=== PATIENT | male | born 1970 | race Caucasian/White ===

== ENCOUNTER 2020-10-21 12:31 | Outpatient (CLI) | payer BC, SELFPAY ==
--- NOTE | ~2020-10-21 | XR_ITS ---
EXAMINATION: XR chest 2V DATE: 10/21/2020 08:51 INDICATION: Cough TECHNIQUE: PA and lateral views of the chest are obtained. COMPARISON: 08/19/2015 FINDINGS: The lungs are free of acute opacities. Scattered calcified pulmonary nodules are consistent with old granulomatous disease. There is no pleural effusion or pneumothorax. The cardiomediastinal silhouette is normal. There is moderate thoracic spondylosis. IMPRESSION: 1. No acute cardiopulmonary abnormality. Reviewed, dictated and finalized at location A. 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
[2020-10-21 09:59] LABS: Alanine Aminotransferase 24 U/L (4-50); Albumin Level 4.1 g/dL (3.5-5.1); Alkaline Phosphatase 71 U/L (38-126); Anion Gap 4 mmol/L (8-16); Aspartate Amino Transferase 23 U/L (17-59); Blood Urea Nitrogen 14 mg/dL (9-20); Calcium 8.7 mg/dL (8.4-10.2); Carbon Dioxide 26 mmol/L (22-30); Chloride 109 mmol/L (98-107); Cholesterol 201 mg/dL (0-200); Estimated Glomerular Filt Rate > 60; Glucose 105 mg/dL (75-110); HDL Direct 40 mg/dL; Potassium 4.4 mmol/L (3.4-5.0); Sodium 139 mmol/L (137-145); Triglycerides 136 mg/dL (<150)
[2020-10-21 10:10] LABS: LDL Cholesterol Direct 128 mg/dL
[2020-10-21 17:20] LABS: SARS-CoV-2 RNA PCR Negative
== END 2020-10-21 12:32 | disposition home or self-care (01) ==
LOC: ANHLAB 10-27 12:31
PROVIDERS: PCP Internal Medicine; Visit Provider Nurse Practitioner
DX: Z13.6 Encounter for screening for cardiovascular disorders (principal); R05 Cough; Z13.220 Encounter for screening for lipoid disorders; Z20.822 Contact with and (suspected) exposure to COVID-19
CPT/HCPCS: 36415; 71046; 80053; 80061; C9803; U0003; U0005

== ENCOUNTER → 2020-11-04 08:13 | Outpatient (CLI) | payer BC, SELFPAY ==
--- NOTE | ~2020-11-04 | CT_ITS ---
EXAMINATION: CT diagnostic chest wo con EXAM DATE: 11/04/2020 08:34 INDICATION: R04.2 - Hemoptysis. Cough. TECHNIQUE: Spiral CT of the chest without contrast. Axial, coronal and sagittal images were reviewe d. Coronal maximum intensity pixel images of chest reviewed. The dose-length product (DLP) for this examination was 793.59 mGy-cm. The exposure was tailored according to patient size (auto mA exposur e control), and iterative reconstruction (ASIR) was used as additional dose reduction technique. The re is no prior study for comparison. Correlation was made with chest x-ray 10/21/2020. FINDINGS: Numerous punctate calcifications from prior granulomatous process. There is apical parasep derrick emphysema. There are no pleural or pericardial effusions. Tracheobronchial tree is patent. T here is no mediastinal, hilar or axillary lymphadenopathy. There is no pneumothorax. Heart normal in size. No evidence of coronary arterial calcification. Upper abdomen is unremarkable. There i s thoracic spondylosis without osteoblastic or osteolytic lesions identified. Left-sided thyromegal y, could be from focal nodule; consider ultrasound for risk stratification. IMPRESSION: 1. Upper lobe predominant paraseptal emphysema. 2. Scattered lung parenchymal granulomata. 3. Left thyromegaly; consider ultrasound. Reviewed, dictated and finalized at location A.
== END ==
PROVIDERS: PCP Internal Medicine; Visit Provider Nurse Practitioner
DX: R04.2 Hemoptysis (principal)
CPT/HCPCS: 71250

== ENCOUNTER 2020-11-11 14:31 | Outpatient (CLI) | payer BC, SELFPAY ==
--- NOTE | ~2020-11-11 | US_ITS ---
EXAMINATION: US thyroid EXAM DATE: 11/11/2020 15:07 INDICATION: Nontoxic goiter. TECHNIQUE: Multiple grayscale and Doppler images of the thyroid were obtained (by a technologist who performed the scan) and subsequently reviewed. Individual nodules and recommendations may be reporte d in accordance with TI-RADS system as designated by the 2017 ACR White Paper TI-RADS committee. Selena elation is made to CT chest 11/04/2020. FINDINGS: The right thyroid lobe measures 4.5 x 1.9 x 2.0 cm, the left measuring 6.7 x 3.5 x 2.7 cm. Mildly dif fusely heterogeneous thyroid echogenicity. In the left thyroid lobe there is a nodule measuring 4.3 x 3.1 x 1.6 cm, solid (2 points), isoechoic (1 point), wider than tall, smooth well defined margin, without echogenic foci, category TR3 for this nodule. Size warrants considering ultrasound-guided FNA. There are several other small bilateral th yroid nodules 5 mm or less not likely clinically significant. IMPRESSION: Left thyroid nodule large enough to recommend ultrasound-guided biopsy. Reviewed, dictated and finalized at location A. IMPRESSION: Left thyroid nodule large enough to recommend ultrasound-guided bio psy.
== END 2020-11-11 14:32 | disposition home or self-care (01) ==
PROVIDERS: PCP Internal Medicine; Visit Provider Nurse Practitioner
DX: E04.1 Nontoxic single thyroid nodule (principal)
CPT/HCPCS: 76536

== ENCOUNTER 2020-11-12 08:38 | Outpatient (CLI) | payer BC, SELFPAY ==
--- NOTE | 2020-11-12 08:44 | EST_ITS ---
Patient Info Name: Manish Esquivel Age: 50 years : 1970 Gender: Male Ht: 76 in Wt: 370 lbs BSA: 3.07 m2 HR: 62 bpm BP: 128 / 75 mmHg Exam Date: 11/12/2020 9:05 AM Exam Location: [facility] Patient Status: Outpatient Admit Date: 11/12/2020 Staff Ordering Physician: Marta Malloy [employer] Field Supervisor: Morelia Márquez RDCS Attending Provider: CLIFFORD GALAN DO Exercise Technologist: Jennifer De La Garza RDCS Exercise Physician: Clifford Galan DO Exam Type: CA stress echo Study Info Indications R06.01 - Orthopnea Treadmill exercise stress echocardiogram is performed. Summary 1. 1. Negative Jimbo exercise stress test for ischemic ST changes by ECG criteria. 2. 2. Reduced functional capacity, achieving 8 METs of workload. 3. 3. Appropriate HR response to exercise. 4. 4. Appropriate HR recovery at 1 minute post exercise. 5. 5. Negative stress echocardiogram for ischemia by wall motion analysis. 6. 6. Patient informed of the above results. Stress Echo Findings Left Ventricle Appropriate increase in LV endocardial thickening with systole. Appropriate augmentation of contractility with systole. No wall motion abnormality. Left Ventricle Normal LV systolic function, no wall motion abnormality. Protocol: Jimbo Stress ECG Details Stage: REST Duration (min): 0 min : 58 sec Speed (mph): 0.0 Grade (%): 0 HR (bpm): 65 SBP (mmHg): 128 DBP (mmHg): 75 METS: --- Stage: REST Duration (min): 8 min : 49 sec Speed (mph): 0.0 Grade (%): 0 HR (bpm): 67 SBP (mmHg): 128 DBP (mmHg): 75 METS: --- Stage: STAGE 1 Duration (min): 1 min : 0 sec Speed (mph): 1.7 Grade (%): 10 HR (bpm): 91 SBP (mmHg): 128 DBP (mmHg): 75 METS: --- Stage: STAGE 1 Duration (min): 2 min : 0 sec Speed (mph): 1.7 Grade (%): 10 HR (bpm): 97 SBP (mmHg): 128 DBP (mmHg): 75 METS: --- Stage: STAGE 1 Duration (min): 3 min : 0 sec Speed (mph): 1.7 Grade (%): 10 HR (bpm): 97 SBP (mmHg): 173 DBP (mmHg): 83 METS: --- Stage: STAGE 2 Duration (min): 1 min : 0 sec Speed (mph): 2.5 Grade (%): 12 HR (bpm): 110 SBP (mmHg): 173 DBP (mmHg): 83 METS: --- Stage: STAGE 2 Duration (min): 2 min : 0 sec Speed (mph): 2.5 Grade (%): 12 HR (bpm): 117 SBP (mmHg): 180 DBP (mmHg): 96 METS: --- Stage: STAGE 2 Duration (min): 3 min : 0 sec Speed (mph): 2.5 Grade (%): 12 HR (bpm): 128 SBP (mmHg): 180 DBP (mmHg): 96 METS: --- Stage: STAGE 3 Duration (min): 0 min : 44 sec Speed (mph): 0.0 Grade (%): 0 HR (bpm): 143 SBP (mmHg): 180 DBP (mmHg): 96 METS: --- Stage: RECOVERY Duration (min): 0 min : 15 sec Speed (mph): 0.0 Grade (%): 0 HR (bpm): 131 SBP (mmHg): 200 DBP (mmHg): 95 METS: --- Stage: RECOVERY Duration (min): 1 min : 15 sec Speed (mph): 0.0 Grade (%): 0 HR (bpm):
--- NOTE | 2020-11-12 15:12 | WPDPFTINT ---
PFT Interpretation This is a pulmonary function test with spirometry, plethysmography and diffusing capacity. The test was performed and results interpreted in accordance with the 2019 and 2005 ATS/ERS Task Force guidelines respectively using the Global Lung Function Initiative-2012 reference equations. Patient demonstrated good effort and cooperation. Reproducibility criteria were met. The quality of the pre bronchodilator spirometry maneuver was Grade A. Findings: Spirometry: The contour the inspiratory and expiratory flow tracing are normal. The FVC is 5.75 L, 93% predicted. The FEV1 is 4.25 L, 89% predicted. The FEV1: FVC ratio is 74%. Plethysmography: The total lung capacity is 8.37 L, 102% predicted. The functional residual capacity is 4.48 L, 105% predicted. The residual volume is 2.62 L, 113% predicted. Diffusing capacity: The absolute diffusion capacity is 25.1, 74% predicted. The diffusing capacity corrected for alveolar volume is 4.15, 97% predicted. Impression: The spirometry is normal without evidence of an obstructive abnormality. The lung volumes are normal. The absolute diffusing capacity is mildly decreased and normalizes when corrected for alveolar volume. There are no prior studies for comparison PFT Procedure Performed PFT Procedure Performed Plethysmography (Lung Vol) Diffusing Cap (DLCO) Spirometry w/o Bronchodil
== END 2020-11-12 08:39 | disposition home or self-care (01) ==
PROVIDERS: PCP Internal Medicine; Visit Provider Nurse Practitioner
DX: R06.01 Orthopnea (principal); R05 Cough
CPT/HCPCS: 93351; 94375; 94726; 94729

== ENCOUNTER 2020-11-25 09:43 | Outpatient (CLI) | payer BC, SELFPAY ==
--- NOTE | ~2020-11-25 | US_ITS ---
EXAMINATION: US FNA w image guidance DATE: 11/25/2020 10:38 INDICATION: Thyroid nodule. TECHNIQUE: The procedure and its benefits and risks were discussed with the patient. Risks specifically discusse d included bleeding. The patient verbalized understanding of the risks and agreed to proceed. The nec k was prepped and draped in the usual sterile manner. 1% lidocaine was used for local anesthesia. 5 passes were made with a 25G needle into the lesion under ultrasound guidance. There were no immedia te complications. The patient understood to call the ordering physician for results after a week and a half and verbalized that understanding. FINDINGS: Grayscale ultrasound images demonstrate needles advanced into a 4.3 cm nodule in left thyroid lobe fo r biopsy. IMPRESSION: 1. Ultrasound-guided fine needle aspiration of a left thyroid nodule. Reviewed, dictated and finalized at location A.
== END 2020-11-25 09:44 | disposition home or self-care (01) ==
PROVIDERS: PCP Internal Medicine; Visit Provider Nurse Practitioner
DX: E04.1 Nontoxic single thyroid nodule (principal)
CPT/HCPCS: 10005; 88173; 88305

== ENCOUNTER 2021-05-26 15:03 | Outpatient (CLI) | payer BC, SELFPAY ==
--- NOTE | ~2021-05-26 | US_ITS ---
EXAMINATION: US soft tissue lower back DATE: 05/26/2021 15:37 INDICATION: Right lower back soft tissue mass and pain. TECHNIQUE: Multiple grayscale and Doppler ultrasound images of the abdomen were obtained. COMPARISON: CT abdomen and pelvis 08/05/2017 FINDINGS: There is an 11 mm subcutaneous hyperechoic mass in the patient's area of concern in right l ower back. IMPRESSION: 1. 11 mm subcutaneous hyperechoic mass in the patient's area of concern in right lower back, likely mild inflammation. Reviewed, dictated and finalized at location A. IMPRESSION: 1. 11 mm subcutaneous hyperechoic mass in the patient's area of concern in rig ht lower back, likely mild inflammation.
== END 2021-05-26 15:04 | disposition home or self-care (01) ==
LOC: ANHIMG 15:05
PROVIDERS: PCP Internal Medicine; Visit Provider Internal Medicine
DX: M54.9 Dorsalgia, unspecified (principal); R22.2 Localized swelling, mass and lump, trunk
CPT/HCPCS: 76705

== ENCOUNTER 2021-06-01 12:41 | Outpatient (CLI) | payer BC, SELFPAY ==
--- NOTE | ~2021-06-01 | CT_ITS ---
EXAMINATION: CT abdomen pelvis wo con DATE: 06/01/2021 13:16 INDICATION: Unspecified abdominal pain TECHNIQUE: Computed tomography (CT) of the abdomen and pelvis was performed without intravenous contr ast. Automated exposure control and iterative reconstruction technique were employed. The dose-length product was 2044.49 mGy-cm. COMPARISON: CT abdomen and pelvis dated 08/05/2017 FINDINGS: There are few scattered small calcified pulmonary nodules at the bilateral lower lung zones consisten t with old granulomatous disease. Normal dependent atelectasis in the right lower lobe. Heart size is normal. No pericardial or pleural effusion. Liver, gallbladder, spleen, pancreas, left kidney and bi lateral adrenal glands are normal. 1.7 cm low-attenuation cyst at the upper pole of the right kidney. Bowels including the appendix are normal. Bladder is normal. No free intraperitoneal gas or fluid. N o pathologically enlarged abdominal or pelvic lymphadenopathy. Small fat-containing paraumbilical her florinda. Small fat-containing left inguinal hernia. Mild thoracic spondylosis. IMPRESSION: 1. No acute intra-abdominal/pelvic process. 2. Small fat-containing left inguinal and paraumbilical hernias. Reviewed, dictated and finalized at location A.
== END 2021-06-01 12:42 | disposition home or self-care (01) ==
PROVIDERS: PCP Internal Medicine; Visit Provider Internal Medicine
DX: R10.9 Unspecified abdominal pain (principal); K40.90 Unilateral inguinal hernia, without obstruction or gangrene, not specified as recurrent; K42.9 Umbilical hernia without obstruction or gangrene
CPT/HCPCS: 74176

== ENCOUNTER 2021-07-12 01:21 | Day surgery (SDC) | payer BC, SELFPAY ==
[2021-07-06 11:08] VITALS: BMI 46.3
--- NOTE | 2021-07-06 11:33 | PC.NURSE ---
Report to the Outpatient Waiting Room, entrance under the green pavilion located off [facility], at time 0600 on date 07/12/21. OR Time: 0730. - You and your visitor will be asked a series of questions to screen for COVID 19 for your protection. - A mask is required within the hospital. - Only one visitor is allowed at this time. Patient visitors will be guided where to wait when not with patient. Preoperative COVID Testing Requirements: No COVID Test needed if: (proof is required; if not received patient will have Rapid Test prior to entry) - Patient has received COVID Vaccine at least 14 days prior to procedure date or - Patient has positive COVID test result within last 90 days of surgery date. COVID Test needed if above criteria is not met If not COVID vaccinated a COVID test must be conducted within 72 hours of surgery and patient is asked to isolate self from time of testing until procedure. You will go to the [facility] for your COVID testing. The [facility] is located at the corner of [address] [facility]. You will only be called if COVID results are positive and your surgeon may reschedule your elective surgery date. Patients may have clear liquids (water, carbonated beverages, clear teas, apple juice) until 3 hours prior to surgery with a maximum of 20 ounces. - No food from midnight until time of surgery - Infants may have breast milk until 4 hours before surgery, infant formula 6 hours prior to surgery. - Children will be allowed to drink immediately following surgery. If applicable, please bring a bottle or sippy cup to assist with drinking. Juice, water, soda, and popsicles are readily available. For infants on formula, please bring formula the day of surgery. Pacifiers are allowed. Take the following medications with a SIP of water the morning of surgery: INHALERS (AND BRING ALBUTEROL) Medications to discontinue per physician: N/A Date to take last dose: N/A Please no make-up, nail persian, hairspray, perfume, deodorant, or body powder the day of surgery. No jewelry (including any body piercings) or valuables the day of surgery, leave them at home. Please take a shower or bath the night before, or the morning of, surgery with an antibacterial soap. Wear comfortable, loose fitting clothing. Children are encouraged to wear pajamas. HIBICLENS SHOWER - Jewelry must be removed prior to entering the operating room. Rings and piercings that are not removed may be cut off. - The hospital will not accept responsibility for valuables. - Please leave all valuables, including medications, at home the day of surgery. If you are going home after surgery, a licensed sprinkler truck driver must drive you home. - NO public transportation without another adult. - We recommend that an adult stay with you for 24 hours following discharge. - We also recommend that you do not drive, make important decision, drink alcoholic beverages, or take any drugs that were not prescribed by your health care provider for at least 24 hours after your discharge time. For Pediatric surgeries, we recommend two adults accompany the child home (only one inside the building at this time). Follow any additional instructions given to you from your surgeon. Telephone instructions given to LYLY DAY and asked if any additional questions and then verbalized understanding. Patient advised to call surgeon office or pre surgery nurse liaison [phone] if any additional questions.
[2021-07-12] VITALS (10 sets, daily range): BP systolic 113–147; BP diastolic 66–87; PULSE 60–75; RESP 12–18; TEMP 36.9–37.4; O2SAT 94–99
[2021-07-12] MEDS: ACETAMINOPHEN 500 MG TABLET 1000 MG PO (06:29)
--- NOTE | 2021-07-12 06:40 | WPDANESEPPF ---
Anes - Initial Pre Proc Eval Procedure: Operation Date: 07/12/21 07:30 Proposed Procedures p Robotic Assisted Left Inguinal Hernia Repair with Mesh - Jodie Patten MD Date/Time: 07/12/21 06:40 Surgeon: Jodie Patten MD Pre Op Diagnosis: left inguinal hernia Patient Data Age: 51 Gender: M Height: 1.93 m Weight: 170.5 kg Allergies Allergy/AdvReac Type Severity Reaction Status Date / Time No Known Allergies Allergy Verified 07/12/21 06:26 Home Medications Medication Instructions Recorded Confirmed Type albuterol sulfate 90 mcg/actuation 2 puff INHALATION Q4H PRN #8.5 g 02/25/21 07/12/21 Rx aerosol inhaler fluticasone propionate 50 2 spray INTRANASAL BID #16 ml 03/16/21 07/06/21 Rx mcg/actuation nasal spray,suspension budesonide-formoterol HFA 160 1 puff INHALATION DAILY #10.2 g 05/31/21 07/06/21 Rx mcg-4.5 mcg/actuation aerosol inhaler Patient hx anesthesia problems: other (wakes up violent) Family hx anesthesia problems: none Results Review: All pre-operative results and documents have been reviewed as part of the pre-operative evaluation. [facility] Past Medical History Medical History (Updated 07/12/21 @ 06:41 by Chin Pena DO) Asthma Emphysema/COPD Lateral epicondylitis of both elbows JACOB (obstructive sleep apnea) does not use CPAP Surgical History Surgical History H/O hernia repair left inguinal repair as a child. 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 Informed Consent: The patient's anesthetic plan and its attendant risks and benefits were discussed with the patient/family/POA. Questions were solicited and answers provided to the satisfaction of the patient/family/POA.
[2021-07-12] MEDS: LACTATED RINGERS 1,000 ML 30 ML IV CONT ×3 (06:47→10:33)
[2021-07-12] MEDS: KETOROLAC 15 MG/ML VIAL (*BKC) IV PUSH (06:49)
--- NOTE | 2021-07-12 07:27 | WPDHPUPDATE1 ---
History and Physical Update Update Date/Time: 07/12/21 07:27 History and Physical has been reviewed, including an updated exam of the patient. There are NO changes in the patient's condition. Risks, benefits, and alternatives have been discussed and questions answered. Patient agrees to proceed with procedure.
[2021-07-12] MEDS: ceFAZolin 3 GM/D5W 100 ML 100 ML IVPB (07:32)
[2021-07-12] MEDS: BUPIVACAINE HCL 0.5% PF 30 ML VIAL INFILTRATE (07:51)
--- NOTE | 2021-07-12 09:25 | W.PM.PROC2 ---
Procedure Note - Detailed Date of Procedure 07/12/21 Pre-op Diagnosis left inguinal hernia Post-op Diagnosis same Procedure Performed robotic assisted left inguinal hernia repair with mesh Surgeon Jodie Patten MD Anesthesia general Indications 51 y/o M c LIH and worsening groin pain over last few months Findings indirect left inguinal hernia Description of Procedure Patient was brought into the operating room and placed in the supine position. After adequate induction of general anesthesia, the patient was prepped and draped in normal sterile fashion. A time-out was then done to verify the patient's identity, as well as the procedure being performed. I began by making a 8 mm incision in the supraumbilical region, a Veress needle was then placed into the peritoneal cavity. CO2 gas was then insufflated and after adequate pneumoperitoneum was achieved, the Veress needle was removed. I then placed an 8 mm trocar through this incision. I then placed the endoscope through this trocar site and under direct visualization placed 2 further 8 mm ports in the right and left mid abdomen. The [employer] robot was then docked to the 3 trocar sites. I then scrubbed out and went to the robotic console. Upon examining the pelvis, it was noted that the patient had a moderate left inguinal hernia. The right side was examined and no hernia defect was noted. I began by making a preperitoneal flap approximately 6 cm superior to the defect. This flap was carried medially past the umbilical ligaments and laterally to the transversalis. It then began dissection of my medial compartment taking this down to the pubic tubercle. I then began the lateral dissection taking this down to the transversalis fascia. Once these compartments were achieved, I began dissection around the cord structures. A moderate sized indirect hernia was noted at this point. Using careful dissection, was able to reduce indirect hernia sac off the cord structures. Once this was adequately done, I went ahead and placed a large piece of 3D Max mesh into the abdominal cavity. The mesh was carefully positioned, centering the center of the mesh over the indirect defect. Once this was done, was very satisfied with our repair. Using 3-0 Vicryl sutures, I tacked the mesh medially to Fred's ligament. Two lateral sutures were placed from the mesh to the transversalis fascia. I then closed the peritoneal flap with a running 2.0 V Lock suture. The abdomen was then desufflated, and all ports were removed. All incisions were then closed with the 4.0 monocryl suture. Dermabond was placed on each wound. The patient tolerated the procedure well, was extubated in the operating room postoperatively, and will now be transferred to the recovery room in stable condition. Implants large 3DMax mesh Estimated Blood Loss 10 Drains No Packing No Pathology none sent Complications No immediate complications Condition stable Disposition PACU
[2021-07-12] MEDS: fentaNYL CITRATE INJ (*CRX) 100 MCG/2 ML VIAL 25 MCG IV PUSH ×2 (09:45→09:59)
[2021-07-12] MEDS: oxyCODONE HCL (*CRX) 5 MG TAB IR PO (10:28)
== END 2021-07-12 12:14 | disposition home or self-care (01) ==
PROVIDERS: PCP Internal Medicine; Visit Provider Surgery
PROC: 8E0Y4CZ Robotic Assisted Procedure of Lower Extremity, Percutaneous Endoscopic Approach (ICD-10-PCS; CPT 49650; principal; 2021-07-12 07:30)
DX: K40.90 Unilateral inguinal hernia, without obstruction or gangrene, not specified as recurrent (principal); Z79.51 Long term (current) use of inhaled steroids; J45.909 Unspecified asthma, uncomplicated; J44.9 Chronic obstructive pulmonary disease, unspecified; G47.33 Obstructive sleep apnea (adult) (pediatric); F17.210 Nicotine dependence, cigarettes, uncomplicated; E66.01 Morbid (severe) obesity due to excess calories; Z68.42 Body mass index [BMI] 45.0-49.9, adult; R30.0 Dysuria; R10.32 Left lower quadrant pain
CPT/HCPCS: 49650; S2900; 36415; 86850; 86900; 86901; A9270; J0330; J0690; J1100; J1170; J1885; J2250; J2405; J2704; J2710; J3010; J7030; J7120

== ENCOUNTER → 2021-12-16 13:44 | Outpatient (CLI) | payer BC, SELFPAY ==
--- NOTE | ~2021-12-16 | XR_ITS ---
XR lumbar spine 2-3V DATE: 12/16/2021 14:38 INDICATION: Low back pain TECHNIQUE: AP, lateral, coned lateral lumbosacral views COMPARISON: 06/01/2021 CT abdomen pelvis FINDINGS: There is levoscoliosis of the thoracic spine. There are 4 rib-bearing functional lumbar vertebrae. No fracture or bone destruction of the lumbar spine is evident. The lumbar pedicles are intact. Lumba r and lumbosacral interspaces appear relatively preserved. No spondylolisthesis. The sacroiliac joints are intact. IMPRESSION: No significant abnormality of lumbar spine Reviewed, dictated and finalized at location A.
--- NOTE | ~2021-12-16 | XR_ITS ---
XR sacrum coccyx min 2V DATE: 12/16/2021 14:38 INDICATION: Sacrococcygeal disorder TECHNIQUE: AP, angled AP and lateral views COMPARISON: 06/01/2021 CT abdomen pelvis FINDINGS: No fracture or bone destruction of the sacrum is evident. The coccyx appears intact on AP v iews, not entirely included on the lateral view. No erosive change or ankylosis or fracture at the sacroiliac joints. IMPRESSION: No significant abnormality Reviewed, dictated and finalized at location A. IMPRESSION: No significant abnormality
== END ==
PROVIDERS: PCP Internal Medicine; Visit Provider Nurse Practitioner
DX: M54.50 Low back pain, unspecified (principal); M53.3 Sacrococcygeal disorders, not elsewhere classified
CPT/HCPCS: 72100; 72220

== ENCOUNTER 2021-12-19 18:00 | Emergency (ER) | payer BC, SELFPAY ==
--- NOTE | ~2021-12-19 | XR_ITS ---
EXAMINATION: XR chest 1V portable Exam Date/Time: 12/19/2021 19:05 CDT CLINICAL HISTORY: racing heart rate,dizziness Comparison: 10/21/2020. RESULT: Lines, tubes, and devices: None. Lungs and pleura: No focal consolidation or pneumothorax. Low lung volumes with crowding. Postinfect ious calcifications. Cardiomediastinal silhouette: Stable cardiomediastinal silhouette. Other: No acute osseous or upper abdominal finding. IMPRESSION: No acute cardiopulmonary process Reviewed, dictated and finalized at location K.
--- NOTE | 2021-12-19 18:08 | ECG_ITS ---
Measurements Intervals [place] Rate: 85 P: 50 [place]: 147 QRS: 5 QRSD: 119 T: 39 QT: 370 QTc: 442 Interpretive Statements SINUS RHYTHM DELAYED PRECORDIAL R/S TRANSITION INCOMPLETE RIGHT BUNDLE BRANCH BLOCK CONSIDER INFERIOR INFARCT, AGE INDETERMINATE ABNORMAL ECG Electronically Signed On 12-19-2021 19:05:00 CDT by Clifford Rivero D.O.
[2021-12-19 18:09] VITALS: BP 160/81; PULSE 81; RESP 15; TEMP 36.6; O2SAT 96
[2021-12-19 18:23] LABS: Basophils Percent Auto 0.1 % (0.2-1.2); Eosinophils Percent Auto 0.4 % (0-4.4); Hematocrit 49.3 % (42.0-52.0); Hemoglobin 16.6 g/dL (14.0-18.0); Immature Granulocyte Absolute 0.06 K/mm3 (0.00-0.031); Immature Granulocyte Percent A 0.6 % (0-0.5); Lymphocytes Absolute Auto 2.17 K/mm3 (0.9-3.2); Lymphocytes Percent Auto 20.2 % (18.3-44.2); Mean Corpuscular HGB Conc 33.7 g/dl (32-36); Mean Corpuscular Hemoglobin 31.4 pg (26-34); Mean Corpuscular Volume 93.4 fl (80-100); Mean Platelet Volume 9.9 fl (7.4-10.4); Monocytes Absolute Auto 0.8 K/mm3 (0.1-0.6); Monocytes Percent Auto 7.2 % (2.6-8.5); Neutrophils Absolute Auto 7.7 K/mm3 (1.3-6.7); Neutrophils Percent Auto 71.5 % (45.5-73.1); Platelet Count Result 270 k/mm3 (150-375); Red Blood Count 5.28 M/mm3 (4.6-6.20); Red Cell Distribution Width 12.4 % (11.5-14.5); White Blood Count 10.8 K/mm3 (4.5-10.0)
[2021-12-19 18:33] LABS: INR 1.1
[2021-12-19 18:34] LABS: Partial Thromboplastin Time 27.2 SECONDS (22.3-36.8)
[2021-12-19 18:35] LABS: Alanine Aminotransferase 30 U/L (6-50); Albumin Level 4.1 g/dL (3.5-5.1); Alkaline Phosphatase 63 U/L (38-126); Anion Gap 8 mmol/L (8-16); Aspartate Amino Transferase 26 U/L (17-59); Bilirubin,Total 0.5 mg/dL (0.2-1.3); Blood Urea Nitrogen 23 mg/dL (9-20); Calcium 8.8 mg/dL (8.4-10.2); Carbon Dioxide 24 mmol/L (22-30); Chloride 105 mmol/L (98-107); Estimated CRCL calculation 138 ml/min; Estimated Glomerular Filt Rate > 60; Glucose 155 mg/dL (65-110); Lipase 349 U/L (23-300); Potassium 4.1 mmol/L (3.4-5.0); Sodium 137 mmol/L (137-145)
[2021-12-19] MEDS: methylPREDNISolone SOD SUCC 125 MG VIAL IV PUSH (18:44)
[2021-12-19] MEDS: FAMOTIDINE 20 MG/2 ML VIAL IV PUSH (18:44)
[2021-12-19] MEDS: diphenhydrAMINE HCl INJ 50 MG/ML VIAL IV PUSH (18:45)
[2021-12-19 18:46] LABS: Troponin I < 0.012 ng/mL (0.000-0.034)
[2021-12-19] MEDS: EPINEPHrine HCL INJ 1 MG/ML AMPUL 0.3 MG IM (18:47)
--- NOTE | 2021-12-19 18:47 | ED.GENADULT ---
HPI - General Adult General Chief complaint: Recheck/Abnormal Lab/Rx Stated complaint: low bp/back pain Time Seen by Provider: 12/19/21 18:36 Source: patient and family Mode of arrival: ambulatory Limitations: no limitations History of Present Illness HPI narrative: Patient is 51 years old white male presents with sudden onset of not feeling well, itchy face, which gradually started spreading all over his body. Patient reports lightheadedness and dizziness at home prior to arrival. Patient denies a history of allergy. Patient was started on diclofenac and methocarbamol 2 days ago for lower back pain. He denies any shortness of breath or difficulty breathing or swallowing Related Data Allergies Allergy/AdvReac Type Severity Reaction Status Date / Time No Known Allergies Allergy Verified 07/27/21 14:03 Review of Systems Review of Systems: All systems reviewed & are unremarkable except as noted in HPI and below PMFSH Past Medical History Medical History Asthma Emphysema/COPD Lateral epicondylitis of both elbows JACOB (obstructive sleep apnea) does not use CPAP Surgical History Surgical History H/O hernia repair left inguinal repair as a child. 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 The only thing new lately is diclofenac and methocarbamol. Patient symptoms resolved immediately after 0.3 epinephrine IM, 50 mg of Benadryl IV, 125 mg of Solu-Medrol IV, 20 mg of Pepcid IV. Patient was advised to stop the prescription medications and to start tramadol until he see his family physician for further evaluation Vital Signs Vital signs: Vital Signs Temperature 36.6 C 12/19/21 18:09 Pulse Rate 81 12/19/21 18:09 Respiratory Rate 15 12/19/21 18:09 Blood Pressure 160/81 H 12/19/21 18:09 Pulse Oximetry 96 12/19/21 18:09 Temperature 36.6 C 12/19/21 18:09 Pulse Rate 69 12/19/21 18:51 Respiratory Rate 16 12/19/21 18:51 Blood Pressure 150/89 H 12/19/21 18:51 Pulse Oximetry 99 12/19/21 18:51 Medical Decision Making Vital Signs Vital Signs: Vital Signs Temperature 36.6 C 12/19/21 18:09 Pulse Rate 81 12/19/21 18:09 Respiratory Rate
[2021-12-19 18:51] VITALS: BP 150/89; PULSE 69; RESP 16; O2SAT 99
[2021-12-19 19:29] VITALS: BP 133/77; PULSE 75; RESP 17; O2SAT 99
== END 2021-12-19 19:31 | disposition home or self-care (01) ==
PROVIDERS: Emergency Medicine; Emergency Provider Emergency Medicine; PCP Internal Medicine
DX: T78.40XA Allergy, unspecified, initial encounter (principal); J43.9 Emphysema, unspecified; G47.33 Obstructive sleep apnea (adult) (pediatric); F17.210 Nicotine dependence, cigarettes, uncomplicated; I45.10 Unspecified right bundle-branch block
CPT/HCPCS: 36415; 71045; 80053; 83690; 84484; 85025; 85610; 85730; 93005; 96372; 96374; 96375; 99284; J0171; J1200; J2930

== ENCOUNTER 2022-03-31 00:55 | Day surgery (SDC) | payer BC, SELFPAY ==
[2022-03-28 09:48] VITALS: BMI 48.3
--- NOTE | 2022-03-30 13:41 | PM.HPGS ---
History of Present Illness History of Present Illness Consent: Risks, benefits, and alternatives have been discussed and questions answered. Patient agrees to proceed with procedure. Chief complaint: Rectal bleed Narrative: Manish Esquivel is a 51 year old male who has been seeing blood in his stools. This has been going on for several years. Times he the toilet bowl was filled with blood. Generally bright red blood. He does not have abdominal rectal pain but complains about pain in his lower back, sacrum. He denies having constipation. Review of Systems Review of Systems: All systems reviewed & are unremarkable except as noted in HPI and below PMFSH Past Medical History Medical History Asthma Emphysema/COPD Lateral epicondylitis of both elbows JACOB (obstructive sleep apnea) does not use CPAP Surgical History Surgical History H/O hernia repair left inguinal repair as a child. 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 Spiritual care concerns: No Agree to blood products: Yes Meds Home Medications and Allergies Home Medications Medication Instructions Recorded Confirmed Type albuterol sulfate 90 mcg/actuation 2 puff inhalation Q4H PRN 02/25/21 03/31/22 Rx aerosol inhaler shortness of breath or wheezing #8.5 grams budesonide-formoterol HFA 160 1 puff inhalation DAILY #10.2 grams 05/31/21 03/31/22 Rx mcg-4.5 mcg/actuation aerosol inhaler (Symbicort) ibuprofen 400 mg tablet 400 mg PO DAILY 03/28/22 03/31/22 History Allergies Allergy/AdvReac Type Severity Reaction Status Date / Time diclofenac Allergy Severe hives Verified 03/31/22 07:56 methocarbamol Allergy Severe hives, SOB Verified 03/31/22 07:56 Exam Const: General: alert Orientation/consciousness: patient oriented x3 Resp: Auscultation: clear to auscultation bilaterally Cardio: Rhythm: regular rhythm GI: GI Palp: Yes Soft to palpation and No Tenderness to palpation present (GI) Neuro: General: patient oriented x3 Assessment and Plan Assessment and plan (1) Rectal bleeding: Code(s): K62.5 - Hemorrhage of anus and rectum Status: Acute Assessment and Plan: Colonoscopy with possible biopsy or polypectomy or cautery or injection of substances.
[2022-03-31 07:58] VITALS: BP 143/87; PULSE 63; RESP 18; TEMP 36.3; O2SAT 100; BMI 46.7
[2022-03-31] MEDS: LACTATED RINGERS 1,000 ML 150 ML IV CONT (08:21)
--- NOTE | 2022-03-31 08:37 | WPDANESEPPF ---
Anes - Initial Pre Proc Eval Procedure: Operation Date: 03/31/22 09:00 Proposed Procedures p Colonoscopy - James Corral MD Date/Time: 03/31/22 08:37 Surgeon: James Corral MD Pre Op Diagnosis: Rectal bleed Patient Data Age: 51 Gender: M Height: 1.93 m Weight: 174.4 kg Last Vital Signs Temp 97.3 F L 03/31/22 07:58 Pulse 63 03/31/22 07:58 Resp 18 03/31/22 07:58 BP 143/87 H 03/31/22 07:58 Pulse Ox 100 03/31/22 07:58 O2 Del Method Room Air 03/31/22 07:58 Allergies Allergy/AdvReac Type Severity Reaction Status Date / Time diclofenac Allergy Severe hives Verified 03/31/22 07:56 methocarbamol Allergy Severe hives, SOB Verified 03/31/22 07:56 Home Medications Medication Instructions Recorded Confirmed Type albuterol sulfate 90 mcg/actuation 2 puff inhalation Q4H PRN 02/25/21 03/31/22 Rx aerosol inhaler shortness of breath or wheezing #8.5 grams budesonide-formoterol HFA 160 1 puff inhalation DAILY #10.2 grams 05/31/21 03/31/22 Rx mcg-4.5 mcg/actuation aerosol inhaler (Symbicort) ibuprofen 400 mg tablet 400 mg PO DAILY 03/28/22 03/31/22 History Patient hx anesthesia problems: none Family hx anesthesia problems: none Results Review: All pre-operative results and documents have been reviewed as part of the pre-operative evaluation. [facility] Past Medical History Medical History Asthma Emphysema/COPD Lateral epicondylitis of both elbows JACOB (obstructive sleep apnea) does not use CPAP Surgical History Surgical History H/O hernia repair left inguinal repair as a child. 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 Informed Consent: The patient's anesthetic plan and its attendant risks and benefits were discussed with the patient/family/POA. Questions were solicited and answers provided to the satisfaction of the patient/family/POA.
[2022-03-31 09:11] VITALS: BP 105/59; PULSE 70; RESP 20; O2SAT 97
[2022-03-31 09:21] VITALS: BP 114/67; PULSE 61; RESP 15; O2SAT 98
[2022-03-31 09:31] VITALS: BP 125/67; PULSE 61; RESP 16; O2SAT 100
== END 2022-03-31 09:33 | disposition home or self-care (01) ==
PROVIDERS: PCP Internal Medicine; Visit Provider Internal Medicine Gastroenterology
PROC: 0DJD8ZZ Inspection of Lower Intestinal Tract, Via Natural or Artificial Opening Endoscopic (ICD-10-PCS; CPT 45378; principal; 2022-03-31 09:00)
DX: K62.5 Hemorrhage of anus and rectum (principal); D12.0 Benign neoplasm of cecum; K64.8 Other hemorrhoids; Z79.51 Long term (current) use of inhaled steroids; J44.9 Chronic obstructive pulmonary disease, unspecified; J45.909 Unspecified asthma, uncomplicated; G47.33 Obstructive sleep apnea (adult) (pediatric); F17.210 Nicotine dependence, cigarettes, uncomplicated; E66.01 Morbid (severe) obesity due to excess calories; Z68.42 Body mass index [BMI] 45.0-49.9, adult
CPT/HCPCS: 45380; 88305; J2704; J7120

== ENCOUNTER 2023-06-21 09:06 | Emergency (ER) | payer BC, SELFPAY ==
[2023-06-21 09:21] VITALS: BP 143/83; PULSE 72; RESP 20; TEMP 36.4; O2SAT 98
--- NOTE | 2023-06-21 09:24 | ED.EAR ---
HPI - Ear Problem General Chief complaint: Ear Stated complaint: lt earache Time Seen by Provider: 06/21/23 09:22 Source: patient Mode of arrival: ambulatory Limitations: no limitations History of Present Illness HPI Narrative: Manish is a 53-year-old female patient presenting to the clinic today with complaints of left ear pain times a few days. He reports no fever or chills. Does have a mild cough. Related Data Allergies Allergy/AdvReac Type Severity Reaction Status Date / Time diclofenac Allergy Severe hives Verified 03/31/22 07:56 methocarbamol Allergy Severe hives, SOB Verified 03/31/22 07:56 Review of Systems Review of Systems: Pertinent positives per HPI. Patient denies any fever, chills, rash, headache, visual changes, dizziness, cough, runny nose, sore throat, shortness of breath, chest pain, palpitations, nausea, vomiting, diarrhea, constipation, abdominal pain, or any urinary issues. [facility] Past Medical History Medical History Asthma Emphysema/COPD Lateral epicondylitis of both elbows JACOB (obstructive sleep apnea) does not use CPAP Surgical History Surgical History H/O hernia repair left inguinal repair as a child. 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 There is no relevant family history pertinent to the patient complaint. Exam Narrative: General: Well-developed, well nourished, in no apparent distress Head: Normocephalic, atraumatic Eyes: Pupils equally round and reactive to light bilaterally, EOM intact, sclera and conjunctive clear, no discharge, lids normal Ears: Right tMs intact and clear, right ear canal clear, left ear canal clear, left TM intact, bulging, red, no drainage, grossly hearing normal. Nose: Nares patent, clear discharge, no inflammation, no sinus tenderness. Mouth: Oropharynx without lesions or masses, good dentition, MMM. Neck: Supple, trachea midline, no enlargement of anterior or posterior cervical nodes, no thyroid masses or goiter palpable. Cardio: Regular rate and rhythm, s1 and s2 normal, no murmur appreciated. Resp: Clear to auscultation bilaterally anteriorly and posteriorly, no rhonchi, rales, wheezing or rubs Course Course Emergency Course: Portions of this record may have been created with voice recognition software. Level of Care: Express Care Visit Vital Signs Vital signs: Vital Signs Temperature 36.4 C 06/21/23 09:21 Pulse Rate 72 06/21/23 09:21 Respiratory Rate 20 06/21/23 09:21 Blood Pressure 143/83 H 06/21/23 09:21 Pulse Oximetry 98 06/21/23 09:21 Oxygen Delivery Room Air 06/21/23 09:21 Temperature 36.4 C 06/21/23 09:21 Pulse Rate 72 06/21/23 09:21 Respiratory Rate 20 06/21/23 09:21 Blood Pressure 143/83 H 06/21/23 09:21 Pulse Oximetry 98 06/21/23 09:21 Oxygen Delivery Room Air 06/21/23 09:21 Vital signs reviewed Medical Decisio
== END 2023-06-21 09:33 | disposition home or self-care (01) ==
PROVIDERS: Emergency Provider Nurse Practitioner Family
DX: H66.92 Otitis media, unspecified, left ear (principal); H60.92 Unspecified otitis externa, left ear; F17.210 Nicotine dependence, cigarettes, uncomplicated; J44.9 Chronic obstructive pulmonary disease, unspecified; G47.33 Obstructive sleep apnea (adult) (pediatric); Z91.199 Patient's noncompliance with other medical treatment and regimen due to unspecified reason
CPT/HCPCS: 99213; G0463